=== PATIENT | female | born 1985 | race African-American/Black ===

== ENCOUNTER 2018-09-03 18:17 | Emergency (ER) | payer MEDICAID ==
[2018-09-03 19:12] VITALS: BP 145/90
[2018-09-03] MEDS ORDERED: TETRACAINE HCL 0.5% OPH SOLN 4 ML OS ONE (19:31)
--- NOTE | 2018-09-03 19:58 | ER Document Report ---
HPI - HPI Time Seen by Provider: 09/03/18 19:20 Pain Level: Denies Context: Patient is a 33-year-old female who presents emergency department with a chief complaint of left eye redness and pain. She states that she thinks she might have gotten dust in her eye. She does some cleaning for work. She states that since she has had that dust in her eye, she continues to have some itchiness to the left eye. She has been rubbing the eye. She attempted to use some over -the-counter eyedrops, but had little relief. She states that she does have some purulent drainage in the morning and her eyelids are "glued shut" in the morning. She denies any diplopia, or any difficulty seeing. She also admits to lid swelling. - CONSTITUTIONAL Constitutional: DENIES: Fever, Chills - EENT EENT: REPORTS: Eye problems. DENIES: Sore Throat, Ear Pain, Nasal Drainage- Clear, Nasal Drainage-Purulent, Congestion - NEURO Neurology: DENIES: Headache - CARDIOVASCULAR Cardiovascular: DENIES: Chest pain - RESPIRATORY Respiratory: DENIES: Trouble Breathing, Coughing - REPRODUCTIVE Reproductive: DENIES: : - MUSCULOSKELETAL Musculoskeletal: DENIES: Extremity pain - DERM Skin Color: Normal Skin Problems: None Past Medical History - General Information source: Patient - Social History Smoking Status: Unknown if Ever Smoked Family History: Reviewed & Not Pertinent Patient has suicidal ideation: No Patient has homicidal ideation: No - Past Medical History Cardiac Medical History: Reports: Hx Hypertension Renal/ Medical History: Denies: Hx Peritoneal Dialysis Vertical Provider Document - CONSTITUTIONAL Agree With Documented VS: Yes Exam Limitations: No Limitations General Appearance: No Apparent Distress - INFECTION CONTROL TRAVEL OUTSIDE OF THE [place] IN LAST 30 DAYS: No - HEENT HEENT: Atraumatic, Normocephalic, PERRLA Notes: Corneal irritation noted to patient's left eye on Pinzon lamp exam - RESPIRATORY Respiratory: Breath Sounds Normal, No Respiratory Distress - CARDIOVASCULAR Cardiovascular: Regular Rate, Regular Rhythm Pulses: Normal: Radial - MUSCULOSKELETAL/EXTREMETIES Musculoskeletal/Extremeties: FROM - NEURO Level of Consciousness: Awake, Alert, Appropriate Motor/Sensory: No Motor Deficit, No Sensory Deficit - DERM Integumentary: Warm, Dry, No Rash Course - Re-evaluation Re-evalutation: 09/03/18 A Pinzon lamp exam was done and the patient has corneal irritation noted. Negative Albert sign. I do not suspect a globe rupture. She will be started on Polytrim and Acular eyedrops. I will also refer her out to ophthalmology, as the patient does have some swelling of her left upper lid, most likely due to to her rubbing her eyelids. I have advised her to take ibuprofen and Tylenol for any pain. She is in agreement with this plan. - Vital Signs Vital signs: Temp Pulse Resp BP Pulse Ox 99.1 F 89 17 145/90 H 99 09/03/18 19:10 09/03/18 19:10 09/03/18 19:10 09/03/18 19:10 09/03/18 19:10 Discharge - Discharge Clinical Impression: Corneal irritation of left eye, Swelling of left eyelid Condition: Stable Disposition: HOME, SELF-CARE Instructions: Conjunctivitis ([facility]), Eyedrop Use ([facility]) Additional Instructions: You are seen today in the emergency department for left eye irritation. You do have some irritation to your eye. Please try not to rub your eye. Please follow-up with ophthalmology in regards to this visit. You have been placed on antibiotic eyedrops. Place 1 drop every 3 hours while awake to your left eye. You have also been prescribed Acular eyedrops. Use as directed. Prescriptions: Ketorolac Tromethamine [Acular] 1 drop OS TIDP PRN #5 ml PRN Reason: Referrals: MIGUEL SWARTZ MD [ACTIVE STAFF] - Follow up tomorrow
[2018-09-03] MEDS ORDERED: POLYMYXIN B SULFATE/TMP OPH SOLN (10 ML/ER DISP) OS PRN (20:00)
== END 2018-09-03 20:12 | disposition home or self-care (01) ==
LOC: ER 18:17
DX: H57.89 Other specified disorders of eye and adnexa (principal); I10 Essential (primary) hypertension
CPT/HCPCS: 99282; J3490 ×2

== ENCOUNTER 2018-10-23 21:06 | Emergency (ER) | payer MEDICAID ==
[2018-10-23 22:06] VITALS: BP 131/78
== END 2018-10-24 00:30 | disposition left against medical advice (07) ==
LOC: ER 21:06
DX: Z53.21 Procedure and treatment not carried out due to patient leaving prior to being seen by health care provider (principal)